=== PATIENT | male | born 1990 | race Asian ===

== ENCOUNTER 2017-08-16 05:22 | Emergency (ER) | payer OTHER ==
[~2017-08-16] VITALS: Ht 177.8 cm; Wt 75.5 kg
[2017-08-16 05:28] VITALS: Ht 177.8 cm; Wt 75.5 kg
[2017-08-16] MEDS ORDERED: IBUPROFEN 600 MG TAB PO STA (05:28)
[2017-08-16] MEDS ORDERED: LIDOCAINE HCL 2% VISC SOLN 20 ML UDC MT ONE (05:30)
--- NOTE | 2017-08-16 05:37 | EMERGENCY ROOM VISIT NOTE ---
History First contact with patient: 05:23 Chief Complaint: SORETHROAT Stated Complaint: NECK PAIN History of Present Illness The patient is a 26 year old male who presents to the Emergency Room for evaluation of sore throat. States pain is sharp and in upper part of throat, not in mid nor lower neck. Patient awoke from sleep 1 hour ago with worsening sore throat. No other symptoms. Nothing makes better nor worse. No medications taken for this. Denies trauma/injury. No history of sick contacts nor chemical exposure. No recent antibiotics. Denies fevers, chills, headache , abdominal pain, cp, cough, shob, rashes, nausea, vomiting, back pain, nor other symptoms. Denies drooling nor difficulty talking. Review of Systems See HPI for pertinent positives & negatives. A total of 6 systems reviewed and were otherwise negative. Social History Smoking Status: Never Smoker Current/Historical Medications No Active Prescriptions or Reported Meds Physical Exam Vital Signs Date Time Temp Pulse Resp B/P (MAP) Pulse Ox O2 Delivery O2 Flow Rate FiO2 08/16/17 06:20 36.6 72 16 130/80 98 Room Air 08/16/17 05:28 36.5 78 14 146/85 98 Room Air 08/16/17 05:28 Room Air Physical Exam GENERAL: Patient is well appearing and in minimal distress. HEENT: Moderate posterior pharyngeal erythema no exudate. No acute trauma, normocephalic atraumatic, mucous membranes moist, no nasal congestion, no scleral icterus. NECK: No stridor, no adenopathy, no meningismus, trachea is midline. No difficulty with ROM. LUNGS: No dyspnea. Clear to auscultation and equal bilaterally. No wheeze, no rhonchi. HEART: Regular rate and rhythm. No murmurs, rubs, gallops appreciated. EXTREMITIES: Normal motion all extremities, no cyanosis, no edema. NEUROLOGIC: Alert and oriented, no acute motor or sensory deficits, no focal weakness, cranial nerves grossly intact. SKIN: Mild facial acne. No rash, no jaundice, no diaphoresis. Medical Decision & Procedures Medications Administered Medications (Trade) Dose Ordered Sig/Prince Route Start Time Stop Time Status Last Admin Dose Admin Lidocaine HCl (Viscous Lidocaine 2% Soln) 20 ml NOW ONCE MT 08/16/17 05:30 08/16/17 05:31 DC 2/11/18 05:40 20 ML Ibuprofen (Motrin Tab) 600 mg NOW STAT PO 08/16/17 05:28 08/16/17 05:29 DC 08/16/17 05:40 600 MG Prednisone (PredniSONE TAB) 60 mg NOW STAT PO 08/16/17 06:11 08/16/17 06:12 DC 08/16/17 06:20 60 MG Medical Decision Differential: Viral, Tonsillitis, Strep, [place], Peritonsillar Abscess, Retropharyngeal Abscess, Otitis, Pneumonia, Influenza, amongst other pathologies entertained. 26 yr old male with 1 hour of a sore throat that resolved with lidocaine and motrin. Strep negative. Exam benign without pain on ROM nor hot voice. No evidence of abscess and story not consistent with mono. Tonsils benign. Posterior pharynx is a bit red. States vaccines up to date. Looks well without issues. Given dose prednisone but after discussions will hold off on rx at the moment. Reviewed at length the importance of symptoms to monitor for. Impression Primary Impression: Pharyngitis, acute Departure Information Dispostion Home / Self-Care Condition GOOD Prescriptions No Active Prescriptions or Reported Meds Referrals No Doctor, Assigned (PCP) Patient Instructions ED Pharyngitis Viral, My [facility]
[2017-08-16 06:20] VITALS: BP 130/80; PULSE 72; TEMP 36.6; O2SAT 98
== END 2017-08-16 06:21 | disposition home or self-care (01) ==
LOC: EDBD 05:22 → C.EDA 05:24
DX: J02.9 Acute pharyngitis, unspecified (principal)